=== PATIENT | male | born 2000 | race Caucasian/White ===

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

== ENCOUNTER 2022-03-23 21:34 | Emergency (ER) | payer OTHER ==
[2022-03-23 21:42] VITALS: TEMP 98.6; BMI 24.3
[2022-03-24] MEDS ORDERED: ACETAMINOPHEN 500 MG TABLET (FP) PO ONE (03:29)
[2022-03-24] MEDS ORDERED: ACETAMINOPHEN 325 MG TABLET (FP) ONE (03:42)
[2022-03-24 04:01] LABS: BASO % 0.6 % (0-2.0); HEMATOCRIT 47.3 % (35.4-49); HEMOGLOBIN 16.7 GM/dL (11.7-16.9); LYMPH % 17.4 % (8-40); MCH 29.9 pg (25.7-33.7); MCHC 35.3 g/dl (32.0-35.9); MEAN CELL VOLUME 84.6 fl (80-96); MEAN PLT VOLUME 7.8 fl (7.5-11.1); MONO % 4.2 % (3.8-10.2); NEUT % 76.8 % (42.8-82.8); PLATELET COUNT 367 10^3/uL (134-434); WHITE BLOOD COUNT 12.5 K/mm3 (4.0-10.0)
[2022-03-24 04:24] LABS: CALCIUM 10.1 mg/dL (8.5-10.1)
[2022-03-24 04:25] LABS: ALBUMIN 5.2 g/dl (3.4-5.0); BLOOD UREA NITROGEN 11.7 mg/dL (7-18)
[2022-03-24 04:28] LABS: CREATININE 0.8 mg/dL (0.55-1.3)
[2022-03-24 04:30] LABS: BILIRUBIN,TOTAL 1.2 mg/dL (0.2-1); TOT PROT 8.4 g/dl (6.4-8.2)
[2022-03-24 04:58] VITALS: BP 110/74; PULSE 82
== END 2022-03-24 04:58 | disposition home or self-care (01) ==
LOC: JER 21:34
DX: R07.1 Chest pain on breathing (principal)
CPT/HCPCS: 36415; 71045-TC-FY; 71046-TC-FY; 71250-TC; 80053; 85025; 85379; 99285-25